=== PATIENT | female | born 1990 | race Caucasian/White ===

== ENCOUNTER 2021-11-20 11:21 | Emergency (ER) | payer OTHER ==
[~2021-11-20] VITALS: Ht 167.6 cm; Wt 73.0 kg
[2021-11-20 12:36] LABS: INFLUENZA A ANTIGEN Negative (Negative); INFLUENZA B ANTIGEN Negative (Negative)
[2021-11-20] MEDS ORDERED: VENTOLIN HFA 1818 GM INH (13:19)
[2021-11-20 13:26] VITALS: BP 126/91
== END 2021-11-20 13:27 | disposition home or self-care (01) ==
LOC: M.ERS 11:21
PROVIDERS: Nurse Practitioner Family
DX: U07.1 COVID-19 (principal)

== ENCOUNTER 2021-11-27 16:21 | Emergency (ER) | payer OTHER ==
[~2021-11-27] VITALS: Ht 167.6 cm; Wt 72.6 kg
[~2021-11-27 16:21] MED LIST: VENTOLIN HFA 1818 GM INH
[2021-11-27 18:31] LABS: ABSOLUTE LYMPHOCYTES 1.3 thou/uL (0.8-5.3); ABSOLUTE MONOCYTES 0.5 thou/uL (0.0-1.2); ABSOLUTE NEUTROPHILS 4.5 thou/uL (1.6-8.1); BASOPHILS 0.3 %; EOSINOPHILS 0.3 %; HEMATOCRIT 38.7 % (37.0-47.0); HEMOGLOBIN 13.1 gm/dL (12.0-15.0); MCHC 33.9 g/dL (28.0-37.0); MCV 82.7 fL (80.0-100.0); MONOCYTES 8.4 %; MPV 8.7 fl. (7.2-11.1); NUCLEATED RBCS 0 /100WBC; PLATELET COUNT* 175 thou/uL (150-400); RBC 4.68 mil/uL (4.20-5.00); RDW-CV 13.5 % (10.5-14.5); WBC 6.3 thou/uL (4.0-11.0)
[2021-11-27 18:38] LABS: CREATININE 0.7 mg/dL (0.6-1.3); POTASSIUM 3.8 mmol/L (3.5-5.1)
[2021-11-27] MEDS ORDERED: DOXYCYCLINE 10100 M2 PO (19:04)
[2021-11-27] MEDS ORDERED: MEDROLDOSEPACK PO (19:04)
[2021-11-27 19:16] VITALS: BP 124/72
== END 2021-11-27 19:16 | disposition home or self-care (01) ==
LOC: M.ERS 16:21
PROVIDERS: Physician Assistant
DX: U07.1 COVID-19 (principal); Z79.51 Long term (current) use of inhaled steroids